=== PATIENT | male | born 1990 | race Caucasian/White ===

== ENCOUNTER 2023-06-19 09:02 | Emergency (ER) | payer OTHER, SELFPAY ==
[2023-06-19 09:06] VITALS: BP 134/78; PULSE 94; RESP 18; TEMP 37; O2SAT 95; BMI 26.1
--- NOTE | 2023-06-19 09:10 | CRLHL7_ITS ---
For Patients: As a result of the Cures Act, medical imaging exams and procedure reports are released immediately into your electronic medical record. You may view this report before your referring provider. If you have questions, please contact your health care provider. INDICATION: Pain and swelling. TECHNIQUE: Three views. COMPARISON: None. FINDINGS: Bones: Normal mineralization and alignment. No fracture or dislocation. Soft tissues: Anterolateral periarticular soft tissue swelling and tibiotalar joint effusion. Clustered rim calcifications in the anterior soft tissues of the lower leg on the lateral view are consistent with phleboliths. IMPRESSION: No fracture or dislocation. Periarticular soft tissue swelling and tibiotalar joint effusion. Dictated by Juan Daniel Ordonez MD @ 06/19/2023 10:00:22 AM (Electronically Signed)
[2023-06-19 10:41] LABS: Basophils Percent Auto 0.2 % (0.0-3.0); Eosinophils Percent Auto 0.2 % (0.0-7.0); Hematocrit 40.7 % (37.0-53.0); Hemoglobin* 13.5 gm/dL (13.5-17.5); Immature Granulocytes Pct Auto 0.2 %; Lymphocytes Percent Auto 12.9 % (20-44); Mean Corpuscular HGB Conc 33 gm/dL (32-36); Mean Corpuscular Hemoglobin 29 pg (26-34); Mean Corpuscular Volume 89 fL (80-100); Neutrophils Percent Auto 76.5 % (42.0-72.0); Platelet Count* 342 K/uL (140-440); RDW Coefficient of Variation % 11.8 % (11.5-15.5); Red Blood Count 4.59 m/uL (4.30-5.90); White Blood Count* 11.75 K/uL (4.50-11.00)
[2023-06-19 10:49] LABS: Slide Review Reflex No
[2023-06-19 11:01] LABS: C Reactive Protein* 2.7 mg/dL (0.5-1.0)
--- NOTE | 2023-06-19 11:06 | ED.NURSE ---
Patient declines offered ankle brace.
[2023-06-19 11:31] LABS: Erythrocyte SedimentationRate* 12 mm/hr (2-15)
--- NOTE | 2023-06-19 11:40 | ED.GENADULT ---
HPI - General Adult General Date Seen: 06/19/23 Chief complaint: Extremity Pain/Injury, Lower Stated complaint: ankle swelling, pain Time Seen by Provider: 06/19/23 09:44 Source: patient Mode of arrival: ambulatory Limitations: no limitations History of Present Illness HPI narrative: Patient is a 33-year-old here for evaluation of swelling and pain in his left ankle. It has been bothering him for couple of days but the swelling is worse over the past 24 hours. He notes that he had been having some problems with back pain and bilateral hip pain, had made an appointment in clinic for July 01 for evaluation of that, but those symptoms completely resolved. He wonders if maybe he was walking a little funny and aggravated his ankle as a result of those symptoms. He denies prior joint problems, no known history of gout or other inflammatory arthritis. No trauma. No fevers or other systemic symptoms. General health is good, he does not smoke or drink. Related Data Home Medications Medication Instructions Recorded Confirmed No Known Home Medications 06/19/23 06/19/23 Allergies Allergy/AdvReac Type Severity Reaction Status Date / Time No Known Drug Allergies Allergy Verified 06/19/23 09:09 Review of Systems Status of ROS: Reports: 10 or more systems reviewed and unremarkable except as noted in History and below Exam Narrative: Exam Narrative: Vital signs as noted above. In general, an alert, well-appearing patient. Head: Normocephalic, atraumatic. Eyes: Pupils are equal reactive. Extraocular movements are full. Conjunctivae are normal. Extremities: Well perfused. No edema. No calf tenderness. Pulses intact. On the left, there is a joint effusion in the ankle joint, there is no erythema nor significant warmth. Distal CMS is normal. Neurologic: Patient is alert and oriented to person and place. Speech is fluent. Face is symmetric. Moves all extremities equally. Affect: Normal. Skin: Warm and dry. Well perfused. Const: Vital Signs, click to edit/add: Vital Signs - 24 hr 06/19/23 09:06 Temperature 98.6 F Pulse Rate [Pulse Oximeter] 94 Respiratory Rate 18 Blood Pressure [Ri ght Upper Arm] 134/78 Pulse Oximetry 95 Oxygen Delivery Me thod Room Air Documenting provider has reviewed patient's vital signs: yes Course Course ED Course: Patient presents with what appears to be likely an inflammatory arthritis, less suspicious of a septic joint given absence of risk factors, erythema, warmth. I offered a joint aspiration to evaluate for crystals, he agreed to proceed with that. Also checked labs for a CBC, sed rate and CRP. Labs were pending at the time of his departure from the ER. Procedure note: The ankle joint was prepped with Betadine, I used a small amount of lidocaine under the skin and then a 20 gauge needle to pull about 10 mL of slightly opaque yellow fluid out of the ankle joint. No obvious purulence. He tolerated this well, bandage was applied. Given my low suspicion for infection, I did suggest that we discharge him home, use prednisone and ibuprofen. I will review his labs and call him if there is anything we need to address differently. Sed rate is normal, CRP minimally elevated at 2.7, serum white blood cell count is 11.7. Joint fluid is cloudy, 22,000 white blood cells with 56% poly in the clear white cells. Overall this is suggestive of an inflammatory process rather than septic joint, I have relayed all this information to the patient. Plan as above. Return at any time for acute worsening, severe uncontrolled pain, fevers, redness or worsening swelling. Vital Signs Vital signs: Initial Vital Signs Temperature 98.6 F 06/19/23 09:06 Temperature Source Temporal Artery Scan 06/19/23 09:06 Pulse Rate 94 06/19/23 09:06 Respiratory Rate 18 06/19/23 09:06 Blood Pressure 134/78 06/19/23 09:06 Blood Pressure Mean 96 06/19/23 09:06 Blood Pressure Position Sitting 06/19/23 09:06 Pulse Oximetry 95 06/19/23 09:06 Oxygen Delivery Method Room Air 06/19/23 09:06 Vital Signs Temperature 98.6 F 06/19/23 09:06 Pulse Rate 94 06/19/23 09:06 Respiratory Rate 18 06/19/23 09:06 Blood Pressure 134/78 06/19/23 09:06 Pulse Oximetry 95 06/19/23 09:06 Oxygen Delivery Method Room Air 06/19/23 09:06 Temperature 98.6 F 06/19/23 09:06 Pulse Rate 94 06/19/23 09:06 Respiratory Rate 18 06/19/23 09:06 Blood Pressure 134/78 06/19/23 09:06 Pulse Oximetry 95 06/19/23 09:06 Oxygen Delivery Method Room Air 06/19/23 09:06 Medical Decision Making Lab Data Labs: Lab Results 06/19/23 06/19/23 Range/Units 10:33 Unknown WBC 11.75 H (4.50-11.00) K/uL RBC 4.59 (4.30-5.90) m/uL Hgb 13.5 (13.5-17.5) gm/dL Hct 40.7 (37.0-53.0) % MCV 89 (80-100) fL MCH 29 (26-34) pg MCHC 33 (32-36) gm/dL RDW Coeff of Ml 11.8 (11.5-15.5) % Plt Count 342 (140-440) K/uL Neut % (Auto) 76.5 H (42.0-72.0) % Lymph % (Auto) 12.9 L (20-44) % [place] % (Auto) 10.0 (0.0-11.0) % Eos % (Auto) 0.2 (0.0-7.0) % Baso % (Auto) 0.2 (0.0-3.0) % Neut # (Auto) 9.00 H (1.7-7.0) K/uL Lymph # (Auto) 1.50 (0.90-2.90) K/uL [place] # (Auto) 1.20 H (0.00-0.90) K/UL Eos # (Auto) 0.00 (0.00-0.50) K/uL Baso # (Auto) 0.00 (0.00-0.30) K/uL Abs Immat Gran (auto) 0.00 (0.00-0.30) K/uL Imm/Tot Granulo (auto) 0.2 % ESR 12 (2-15) mm/hr C-Reactive Protein 2.7 H (0.5-1.0) mg/dL Fluid Volume 10 Fluid Color Xanthochromic A Fluid Appearance Cloudy A Fluid WBC 84729 Cells/uL Fluid RBC 2000 Cells/uL Fluid Polynuclear WBCs 56 % Fluid Mononuclear WBCs 44 % Discharge Plan Discharge Clinical Impression: Inflammatory arthritis Patient Disposition: Home, Self-Care Condition: Stable Instructions: Swollen Ankle Joint (ED) Additional Instructions: Ibuprofen 400 mg 3 times daily. Prednisone as follows: 3 tablets daily for 3 days then 2 tablets daily for 3 days then 1 tablet daily for 3 days. Primary care follow-up as planned. For severe or worsening pain, new symptoms such as fever, significant redness or warmth of the ankle, return to the emergency department at any time. Joint fluid analysis for crystals will take a couple of days, I will call you if there are any other significant findings today. Prescriptions: No Action No Known Home Medications Follow Up/Referrals: Provider,Not a Local [Primary Care Provider] - Stand Alone Forms: [employer] Info Instructions
[2023-06-19 11:41] LABS: Mononuclear WBC Body Fluid* 44 %; Polynuclear WBC Body Fluid* 56 %; RBC, Body Fluid* 2000 Cells/uL; WBC, Body Fluid* 22722 Cells/uL
[2023-06-19 11:42] LABS: BF Clarity* Cloudy; BF Color Xanthochromic; BF Total Volume* 10
== END 2023-06-19 11:06 | disposition home or self-care (01) ==
PROVIDERS: Emergency Provider Emergency Medicine
DX: M19.072 Primary osteoarthritis, left ankle and foot (principal)
CPT/HCPCS: 20605; 36415; 73610; 85025; 85651; 86140; 87070; 89051; 89060; 99284

== ENCOUNTER 2023-08-24 07:30 | Outpatient (RCR) | payer OTHER, SELFPAY | END 2023-12-22 23:59 | disposition home or self-care (01) | PROVIDERS: Visit Provider Family Medicine | DX: M16.9 Osteoarthritis of hip, unspecified (principal); M54.50 Low back pain, unspecified; Z51.89 Encounter for other specified aftercare | CPT/HCPCS: 97110; 97140; 97162 ==